=== PATIENT | female | born 1940 | race Caucasian/White ===

== ENCOUNTER 2019-02-14 09:10 | Emergency (ER) | payer MEDICARE, BC, SELFPAY ==
[2019-02-14 10:12] VITALS: BP 108/69; PULSE 82; RESP 22; TEMP 36; O2SAT 97
[2019-02-14 11:07] VITALS: BP 121/65; PULSE 73; RESP 18; O2SAT 92
--- NOTE | 2019-02-14 11:45 | PC.NURSE ---
left flank area, tenderness with palpation. no echymosis or swelling noted.
[2019-02-14 11:53] LABS: Bacteria Urine None Seen; Culture Indicated Urine Specimen Cultured; RBC Urine 0-1/HPF (0-5/HPF); Squamous Epithelial Cell Urine None Seen (0-5/HPF); WBC Urine 0-1/HPF (0-5/HPF)
[2019-02-14 12:00] VITALS: BP 125/69; PULSE 76; RESP 16; O2SAT 94
[2019-02-14 12:30] VITALS: BP 135/73; PULSE 79; RESP 16; O2SAT 99
--- NOTE | 2019-02-14 12:42 | ED.BACK ---
HPI - Back Pain/Injury General Chief Complaint: Back Pain/Injury Stated Complaint: Left side severe back pain Time Seen by Provider: 02/14/19 11:13 Source: patient and family Mode of arrival: ambulatory Limitations: no limitations History of Present Illness HPI Narrative: Patient is a 78-year-old female who presents with left-sided back pain. It has been ongoing for about 1 week. It initially started when she shook the rugs out. She said it was a little bit sore she took some ibuprofen and it got better however she started vacuuming 3 days ago it got worse. It is worse every time she moves. No numbness or tingling in her arms. No painful breathing. She did not fall. She has been using a heating pad. She was given Flexeril which she says isn't helping. MD Complaint: back pain and back injury Onset (ago): day(s) (7) Duration: progressively worsening Location: thoracic spine Severity: moderate Quality: sharp Radiation: none Relieving factors: none Related Data Previous Rx's Medication Instructions Recorded diazepam [Valium] 2 mg PO BID PRN #10 tab 02/14/19 tramadol 50 mg PO Q6HR PRN #10 tab 02/14/19 Allergies Allergy/AdvReac Type Severity Reaction Status Date / Time No Known Drug Allergies Allergy Verified 02/14/19 10:16 Review of Systems Review of Systems GENERAL: Denies chills, fatigue, malaise, fever, sweats, travel HEENT: Denies sinus pain, ear pain, sore throat, difficulty swallowing, neck pain RESPIRATORY: Denies dyspnea, cough, wheezing, hemoptysis, sputum. CARDIOVASCULAR: Denies chest pain, palpitations, orthopnea, edema GASTROINTESTINAL: Denies nausea, vomiting, abdominal pain, diarrhea, constipation, melena. : Denies dysuria, frequency, incontinence, hematuria, urinary retention, flank pain. MUSCULOSKELETAL: See HPI SKIN: No rash, no erythema, no pruritus NEUROLOGIC: Denies weakness, dizziness, headache, numbness, change in speech, confusion PSYCHIATRIC: No concerning psychosocial issues. 12 point review of systems is negative except for those stated above and HPI COUNT INCLUDES THE [facility] Medical History Diabetes (Acute) Social History Smoking Status: Never smoker Social History Smoking Status: Never smoker Exam Initial Vital Signs Initial Vital Signs: Vital Signs Temperature 96.8 F L 02/14/19 10:12 Pulse Rate 82 02/14/19 10:12 Respiratory Rate 22 02/14/19 10:12 Blood Pressure 108/69 02/14/19 10:12 Pulse Oximetry 97 02/14/19 10:12 GENERAL: Alert elderly female ambulatory no acute distress and in no acute distress. HEENT: Head atraumatic,EOMI, pupils reactive CARDIOVASCULAR: Regular rate and rhythm without murmurs, rubs or gallops. RESPIRATORY: Breath sounds equal bilaterally, no wheezes rales or rhonchi. ABDOMEN: Soft, nontender. Normoactive bowel sounds all 4 quadrants. No guarding or rebound. BACK: No vertebral tenderness, left-sided thoracic muscle thumb felt tender to palpation no sign of trauma EXTREMITIES: Normal range of motion, no clubbing or edema. Neurovascularly intact NEUROLOGICAL: Alert and oriented x4.Normal gait and speech. Cranial nerves II through XII grossly intact. SKIN: Warm, dry, no laceration, no petechiae, no rashes or lesions. Course Orders Ordered: ED Orders 02/14/19 11:40 Urine Culture Stat Urine Microscopic Stat Vital Signs - 8 hr 02/14/19 11:07 02/14/19 12:00 02/14/19 12:30 Pulse Rate 73 76 79 Respiratory Rate 18 16 16 Blood Pressure [Left Arm] 121/65 125/69 135/73 Pulse Oximetry 92 94 99 MDM - Back Pain/Injury Lab Data Lab Results 02/14/19 Range/Units 11:40 Urine RBC 0-1/hpf (0-5/HPF) Urine WBC 0-1/hpf (0-5/HPF) Ur Squamous Epith Cells None seen (0-5/HPF) Urine Bacteria None seen (None) Ur Culture Indicated? Specimen cultured Urine Dip Bedside Urine Glucose Negative Bedside Urine Bilirubin - Negative Bedside Urine Ketone - Negative Urine Specific [place] 1.015 Bedside Urine Occult Blood - Negative Bedside Urine pH 6.0 Bedside Urine Protein - Negative Bedside Urine Urobilinogen - Negative Bedside Urine Nitrite - Negative Bedside Urine Leukocytes ++ 125 Esterase MDM Narrative Medical decision making narrative: Patient has been taking ibuprofen only. She has Flexeril, but not helping, also on xanax daily. Discussed with her that we can change muscle relaxer to Valium instead but I cautioned her not to combine it with Xanax. She has also previously been on tramadol for pain which she has tolerated well. I will give her a few tablets of this as well. I cautioned both daughter and patient combination of tramadol and Valium can cause unsteadiness. Use sparingly and only when needed. I am some light movement and activity. She did not fall there was no impact at this time I see no indication for any sort of imaging. Discharge Plan Departure Patient Disposition: Home Clinical Impression: Thoracic back pain Qualifiers: Chronicity: acute Back pain laterality: left Qualified Code(s): M54.6 - Pain in thoracic spine Discharge Date/Time: 02/14/19 13:02 Interventions: ED Discharge Assessment Last Done: 02/14/19 13:01 Instructions: DI for Back Spasm Activity Restrictions/Additional Instructions: *You have been diagnosed with left-sided breast pain *What to do: Light activity is in her ears. No strenuous activity or heavy lifting no vacuuming. *Continue to take medications as directed Valium 2 mg every 12 hours if needed for muscle spasm-do not combine with Xanax or Flexeril --> stop taking Flexeril -tramadol 1 tablet every 6 hours if needed for severe pain -Tylenol 650 mg every 4-6 hours if needed for [id number] *Follow up with your primary care provider in 2-3 days *Return to ER if you should have increasing pain, numbness, tingling or any new, worsening or concerning symptoms CONTROLLED SUBSTANCE DISCHARGE (Narcotoic/benzodiazepine/Flexeril/Phenergan) 1. You have been prescribed narcotic medications, it does have acetaminophen/Tylenol/paracetamol in it so do not take extra Tylenol or Tylenol containing products -TRAMADOL DOES NOT CONTAIN TYLENOL OR IBUPROFEN 2. Please understand that we cannot provide further refills of narcotics, benzodiazepines or controlled substances through the ED and her pain management will need to be through your provider. 3. While on these medications you cannot drive or operate heavy machinery. 4. You cannot sign legal documents or perform any duties such as this. 5. As long as you're taking opiate pain medications he should also be taking a stool softener such as Colace, Dulcolax, MiraLAX or prune juice, to help avoid constipation. Prescriptions: New tramadol 50 mg tablet 50 mg PO Q6HR PRN (Reason: pain) Qty: 10 RF: 0 diazepam [Valium] 2 mg tablet 2 mg PO BID PRN (Reason: muscle spasm) Qty: 10 RF: 0 Referrals: Momo Nielsen MD [Primary Care Provider] -
== END 2019-02-14 13:02 | disposition home or self-care (01) ==
PROVIDERS: Emergency Provider Emergency Medicine; PCP Specialist
DX: M54.6 Pain in thoracic spine (principal)
CPT/HCPCS: 81003; 81015; 87086; 99283

== ENCOUNTER 2020-11-22 09:31 | Emergency (ER) | payer MEDICARE, BC, SELFPAY ==
[2020-11-22 09:38] VITALS: BP 126/72; PULSE 106; RESP 14; TEMP 36.4; O2SAT 95; BMI 34.2
--- NOTE | 2020-11-22 09:58 | ED.BACK ---
HPI - Back Pain/Injury General Chief Complaint: Back Pain/Injury Stated Complaint: BAD BACK, LEFT SIDE MOSTLY Time Seen by Provider: 11/22/20 09:39 Source: patient Limitations: no limitations History of Present Illness HPI Narrative: Patient is a 80-year-old female with history of chronic back pain presenting today with worsening left-sided back pain. She says she takes meloxicam daily and Flexeril as needed. However this pain seems to be more on the lateral side not the center it is different from her previous pain. She denies any painful or frequent urination. She has no fever. Pain does not radiate around to her abdomen. She does have a history of kidney stones but she is not sure that this feels like a kidney stone. She says she really can not get comfortable. She denies any nausea or vomiting. MD Complaint: back pain Onset (ago): day(s) Duration: constant Location: left flank Severity: moderate Related Data Previous Rx's Medication Instructions Recorded diazepam [Valium] 2 mg PO BID PRN #10 tab 02/14/19 tramadol 50 mg PO Q6HR PRN #10 tab 02/14/19 ketorolac 10 mg PO TID PRN #10 tab 11/22/20 nitrofurantoin monohyd/m-cryst 100 mg PO BID #10 cap 11/22/20 [Macrobid] Allergies Allergy/AdvReac Type Severity Reaction Status Date / Time No Known Drug Allergies Allergy Verified 11/22/20 09:44 Review of Systems Review of Systems Narrative: GENERAL: Denies chills, fatigue, malaise, fever, sweats, travel HEENT: Denies sinus pain, ear pain, sore throat, difficulty swallowing, neck pain RESPIRATORY: Denies dyspnea, cough, wheezing, hemoptysis, sputum. CARDIOVASCULAR: Denies chest pain, palpitations, orthopnea, edema GASTROINTESTINAL: Denies nausea, vomiting, abdominal pain, diarrhea, constipation, melena. : Denies dysuria, frequency, incontinence, hematuria, urinary retention, flank pain. MUSCULOSKELETAL: See HPI SKIN: No rash, no erythema, no pruritus NEUROLOGIC: Denies weakness, dizziness, headache, numbness, change in speech, confusion PSYCHIATRIC: No concerning psychosocial issues. 12 point review of systems is negative except for those stated above and HPI Patient History Medical History Chronic back pain Diabetes Kidney stones Social History Smoking Status: Never smoker Smoking Status: Never smoker alcohol intake frequency: other Substance Use Type: does not use Exam Initial Vital Signs Initial Vital Signs: Vital Signs Temperature 97.5 F L 11/22/20 09:38 Pulse Rate 106 H 11/22/20 09:38 Respiratory Rate 14 11/22/20 09:38 Blood Pressure 126/72 11/22/20 09:38 Pulse Oximetry 95 11/22/20 09:38 GENERAL: Well-appearing, well-nourished and in no acute distress. HEENT: Head atraumatic,EOMI, pupils reactive, face symmetric, moist mucous membranes CARDIOVASCULAR: Regular rate and rhythm without murmurs, rubs or gallops. RESPIRATORY: Breath sounds equal bilaterally, no wheezes rales or rhonchi. ABDOMEN: Soft, nontender. Normoactive bowel sounds all 4 quadrants. No guarding or rebound. : Left CVA tenderness EXTREMITIES: Normal range of motion, no clubbing or edema. Neurovascularly intact NEUROLOGICAL: Alert and oriented x4.Normal gait and speech. SKIN: Warm, dry, no laceration, no petechiae, no rashes or lesions. Course Orders Ordered: ED Orders 11/22/20 10:01 CT kidney ureter bladder (KUB) Stat Complete Blood Count AUTO DIFF Stat Comprehensive Metabolic Panel Stat 11/22/20 10:32 Urine Culture Stat Urine Microscopic Stat Discontinued Medications Ketorolac Tromethamine (Ketorolac 60 Mg/2 Ml Vial) 30 mg IV NOW ONE Stop: 11/22/20 09:59 Last Admin: 11/22/20 10:11 Dose: 30 mg Documented by: MARK Vital Signs Vital signs: Vital Signs - 8 hr 11/22/20 10:33 11/22/20 11:00 Pulse Rate 91 H 88 Blood Pressure 97/56 L Pulse Oximetry 93 93 MDM - Back Pain/Injury Lab Data Attestation: I reviewed the patient's lab results. Result diagrams: 11/22/20 10:01 11/22/20 10:01 Labs: Lab Results 11/22/20 11/22/20 11/22/20 Range/Units 10:01 10:01 10:32 WBC 7.9 (4.5-11.0) X10^3/uL RBC 4.76 (4.0-5.2) X10^6/uL Hgb 13.9 (12.0-16.0) g/dL Hct 42.3 (36-46) % MCV 88.9 (80-100) fL MCH 29.3 (26-34) PG MCHC 33.0 (30-36) % RDW 13.2 (11.6-14.8) % Plt Count 342 (150-400) X10^3/uL Neut % (Auto) 56.5 (50-75) % Lymph % (Auto) 34.1 (25-40) % [place] % (Auto) 7.3 (3-14) % Eos % (Auto) 1.2 L (2-4) % Baso % (Auto) 0.9 (0-2) % Neut # (Auto) 4500 (1470-0998) /uL Lymph # (Auto) 2700 (9640-8301) /uL [place] # (Auto) 600 (0-900) /uL Eos # (Auto) 100 (0-450) /uL Baso # (Auto) 100 (0-100) /uL Sodium 134 L (137-145) mmol/L Potassium 4.7 (3.4-5.1) mmol/L Chloride 102 (98-107) mmol/L Carbon Dioxide 23 (22-32) mmol/L BUN 15 (7-17) mg/dL Creatinine 0.82 (0.52-1.04) mg/dL Estimated GFR > 60.0 (>60) mL/min BUN/Creatinine Ratio 18.3 (6-22) Glucose 120 H (80-110) mg/dL Calcium 9.6 (8.4-10.2) mg/dL Total Bilirubin 0.5 (0.2-1.3) mg/dL AST 34 (14-36) IU/L ALT 19 (<35) IU/L Alkaline Phosphatase 89 (38-126) U/L Total Protein 8.6 H (6.3-8.2) g/dL Albumin 4.7 (3.5-5.0) g/dL Globulin 3.9 (1.7-4.1) g/dL Albumin/Globulin Ratio 1.2 (1.0-2.8) Urine RBC None seen (0-5/HPF) Urine WBC 1-5/hpf (0-5/HPF) Ur Squamous Epith Cells 1-5 /hpf (0-5/HPF) Urine Bacteria Occasional (0-1) (None) Ur Culture Indicated? Specimen cultured Urine Dip Bedside Urine Glucose Negative Bedside Urine Bilirubin - Negative Bedside Urine Ketone - Negative Urine Specific [place] 1.020 Bedside Urine Occult Blood - Negative Bedside Urine pH 6 Bedside Urine Protein - Negative Bedside Urine Urobilinogen - Negative Bedside Urine Nitrite - Negative Bedside Urine Leukocytes + [address] scan - abdomen/pelvis: Radiologist's Impression: PROCEDURE: CT KIDNEY URETER BLADDER (KUB) INDICATIONS: LEFT FLANK PAIN TECHNIQUE: Noncontrast 5 mm thick sections acquired from the diaphragms to the symphysis. 5 mm thick coronal and sagittal reformats were then performed. For radiation dose reduction, the following was used: automated exposure control, adjustment of mA and/or kV according to patient size. COMPARISON: None. FINDINGS: Image quality: Excellent. Lung bases: Lung bases are clear. Heart size is normal a small amount of nonspecific pericardial fluid is present that may be physiologic. Urinary system: Both kidneys are normal in size. No kidney stones. No hydronephrosis or perinephric fat stranding. Both ureters appear non-dilated throughout their expected courses. Bladder wall thickness is normal; no calcified bladder stones. Other solid organs: Liver is normal in size. Gallbladder is surgically absent. Pancreas is normal in contours. Spleen is normal in size. No adrenal nodules. Peritoneum and bowel: A diverticulum is seen in the 2nd portion of the duodenum without acute inflammatory changes. There is a small hiatal hernia. Moderate stool is seen in the colon. A few scattered diverticula are seen without signs of acute diverticulitis. The appendix appears normal. There are no signs of bowel obstruction. There is no ascites or pneumoperitoneum. Nodes and vessels: No retroperitoneal or mesenteric adenopathy by size criteria. Aorta and inferior vena cava are normal in caliber. Moderate atherosclerotic calcifications are seen in the aorta. Abdominal wall: There is a tiny fat containing periumbilical hernia. A small fat containing hernia is seen at the right upper quadrant. Pelvis: No free pelvic fluid. No inguinal hernias or adenopathy. Status post hysterectomy. Surgical clips are seen in the pelvis. Bones: No suspicious bony lesions. No vertebral body compression fractures. Multilevel degenerative changes are seen in the spine with trace levoconvex curvature. IMPRESSION: 1. No renal or ureteral calculus or hydronephrosis. 2. Colonic diverticulosis without signs of acute diverticulitis. Moderate stool in the colon. Incidental small duodenal diverticulum and a small hiatal hernia are also noted. Dictated by: Jose Sargent M.D. on 11/22/2020 at 10:17 MDM Narrative Medical decision making narrative: Patient does have leukocytes in her urine and some left flank pain. Overall does not appear septic possible kidney infection versus acute on chronic back pain. Toradol seems to have helped her a lot. More so than meloxicam Discharge Plan Departure Patient Disposition: Home Clinical Impression: Infection of kidney Instructions: DI for Kidney Infection Activity Restrictions/Additional Instructions: *You have been diagnosed with kidney infection *What to do: At this time based on symptoms your worsening back pain may be related to a mild infection. Will start you on antibiotics and change her pain medication. *Continue to take medications as directed Keflex 500 mg 3 times a day for 5 days Ketorolac 10 mg every 8 hours if needed for [id number] pain--> DO NOT TAKE MELOXICAM OR OTHER NSAIDS SUCH IBUPROFEN, MOTRIN, ALEVE, ADVIL, NAPROXEN WHILE TAKING THIS *Follow up with your primary care provider in 2-3 days *Return to ER if you should have increasing pain, confusion, weakness, numbness, tingling or any new, worsening or concerning symptoms Prescriptions: New ketorolac 10 mg tablet 10 mg PO TID PRN (Reason: pain) Qty: 10 RF: 0 nitrofurantoin monohyd/m-cryst [Macrobid] 100 mg capsule 100 mg PO BID Qty: 10 RF: 0 No Action tramadol 50 mg tablet 50 mg PO Q6HR PRN (Reason: pain) Qty: 10 RF: 0 diazepam [Valium] 2 mg tablet 2 mg PO BID PRN (Reason: muscle spasm) Qty: 10 RF: 0 Referrals: Darrion Gómez MD [Primary Care Provider] -
--- NOTE | 2020-11-22 10:01 | DI.CT.S_ITS ---
PROCEDURE: CT KIDNEY URETER BLADDER (KUB) INDICATIONS: LEFT FLANK PAIN TECHNIQUE: Noncontrast 5 mm thick sections acquired from the diaphragms to the symphysis. 5 mm thick coronal and sagittal reformats were then performed. For radiation dose reduction, the following was used: automated exposure control, adjustment of mA and/or kV according to patient size. COMPARISON: None. FINDINGS: Image quality: Excellent. Lung bases: Lung bases are clear. Heart size is normal a small amount of nonspecific pericardial fluid is present that may be physiologic. Urinary system: Both kidneys are normal in size. No kidney stones. No hydronephrosis or perinephric fat stranding. Both ureters appear non-dilated throughout their expected courses. Bladder wall thickness is normal; no calcified bladder stones. Other solid organs: Liver is normal in size. Gallbladder is surgically absent. Pancreas is normal in contours. Spleen is normal in size. No adrenal nodules. Peritoneum and bowel: A diverticulum is seen in the 2nd portion of the duodenum without acute inflammatory changes. There is a small hiatal hernia. Moderate stool is seen in the colon. A few scattered diverticula are seen without signs of acute diverticulitis. The appendix appears normal. There are no signs of bowel obstruction. There is no ascites or pneumoperitoneum. Nodes and vessels: No retroperitoneal or mesenteric adenopathy by size criteria. Aorta and inferior vena cava are normal in caliber. Moderate atherosclerotic calcifications are seen in the aorta. Abdominal wall: There is a tiny fat containing periumbilical hernia. A small fat containing hernia is seen at the right upper quadrant. Pelvis: No free pelvic fluid. No inguinal hernias or adenopathy. Status post hysterectomy. Surgical clips are seen in the pelvis. Bones: No suspicious bony lesions. No vertebral body compression fractures. Multilevel degenerative changes are seen in the spine with trace levoconvex curvature. IMPRESSION: 1. No renal or ureteral calculus or hydronephrosis. 2. Colonic diverticulosis without signs of acute diverticulitis. Moderate stool in the colon. Incidental small duodenal diverticulum and a small hiatal hernia are also noted. Dictated by: Jose Sargent M.D. on 11/22/2020 at 10:17 Approved by: Jose Sargent M.D. on 11/22/2020 at 10:25
[2020-11-22] MEDS: KETOROLAC 60 MG/2 ML VIAL 30 MG IV (10:11)
[2020-11-22 10:33] VITALS: PULSE 91; O2SAT 93
[2020-11-22 10:35] LABS: Add Manual Diff / Slide Review NO; Basophils Absolute Auto 100 /uL (0-100); Basophils Percent Auto 0.9 % (0-2); Eosinophils Absolute Auto 100 /uL (0-450); Eosinophils Percent Auto 1.2 % (2-4); Hematocrit 42.3 % (36-46); Hemoglobin 13.9 g/dL (12.0-16.0); Lymphocytes Absolute Auto 2700 /uL (1100-4500); Lymphocytes Percent Auto 34.1 % (25-40); Mean Corpuscular Hemoglobin 29.3 PG (26-34); Mean Corpuscular Volume 88.9 fL (80-100); Monocytes Absolute Auto 600 /uL (0-900); Monocytes Percent Auto 7.3 % (3-14); Neutrophils Absolute Auto 4500 /uL (1500-7000); Neutrophils Percent Auto 56.5 % (50-75); Platelet Count 342 X10^3/uL (150-400); Red Blood Cell Count 4.76 X10^6/uL (4.0-5.2); Red Cell Distribution Width 13.2 % (11.6-14.8); White Blood Cell Count 7.9 X10^3/uL (4.5-11.0)
[2020-11-22 10:39] LABS: RBC Urine None Seen (0-5/HPF)
[2020-11-22 10:45] LABS: Alanine Aminotransferase 19 IU/L (<35); Albumin 4.7 g/dL (3.5-5.0); Albumin Globulin Ratio 1.2 (1.0-2.8); Alkaline Phosphatase 89 U/L (38-126); Aspartate Aminotransferase 34 IU/L (14-36); BUN Creatinine Ratio 18.3 (6-22); Bilirubin Total 0.5 mg/dL (0.2-1.3); Blood Urea Nitrogen 15 mg/dL (7-17); Calcium 9.6 mg/dL (8.4-10.2); Carbon Dioxide 23 mmol/L (22-32); Chloride 102 mmol/L (98-107); Estimated Glomerular Filt Rate > 60.0 mL/min (>60); Globulin 3.9 g/dL (1.7-4.1); Glucose 120 mg/dL (80-110); HEMOLYSIS < 15 (0-50); Potassium 4.7 mmol/L (3.4-5.1); Sodium 134 mmol/L (137-145); Total Protein 8.6 g/dL (6.3-8.2)
[2020-11-22 10:48] LABS: Bacteria Urine Occasional (0-1); Culture Indicated Urine Specimen Cultured; Squamous Epithelial Cell Urine 1-5 /HPF (0-5/HPF); WBC Urine 1-5/HPF (0-5/HPF)
[2020-11-22 11:00] VITALS: BP 97/56; PULSE 88; O2SAT 93
== END 2020-11-22 11:29 | disposition home or self-care (01) ==
PROVIDERS: Emergency Provider Emergency Medicine; PCP Family Medicine
DX: N15.9 Renal tubulo-interstitial disease, unspecified (principal); Z87.442 Personal history of urinary calculi
CPT/HCPCS: 36415; 74176; 80053; 81003; 81015; 85025; 87086; 96374; 99283; 99284; J1885

== ENCOUNTER → 2020-12-02 19:20 | Outpatient (CLI) | payer MEDICARE, BC, SELFPAY ==
--- NOTE | 2020-12-02 19:24 | DI.MRI.S_ITS ---
PROCEDURE: MR LUMBAR SPINE WO CON INDICATIONS: RADICULOPATHY, LUMBAR REGION TECHNIQUE: Noncontrast sagittal T1 spin echo and T2 fast echo, sagittal STIR, axial T1 and T2 fast spin echo through the lumbar spine. In cases with scoliosis, additional coronal T2 fast spin echo may be performed. COMPARISON: None. FINDINGS: Image quality: Excellent. Alignment and Curvature: Straightening of the usual lumbar lordosis. Otherwise normal alignment. Vertebral body heights maintained. Bone Marrow: Discogenic marrow edema at the opposing L1-L2 and L2-L3 endplates. No suspicious focal marrow signal abnormality. Spinal Cord: Conus medullaris terminates at the normal level. Visualized cord demonstrates normal signal and size. Regional Soft Tissues: No paravertebral masses. T12-L1: No spinal canal or neural foraminal stenosis. L1-L2: Disc bulge flattens the ventral thecal sac without mass effect upon the traversing L2 nerve roots. Mild bilateral neural foraminal stenosis due to spondylitic and spinal arthropathic changes. L2-L3: Mild spinal canal stenosis with displacement of the descending L3 nerve roots due to disc bulge and extrusions. Along with spondyloarthropathy changes there is mild bilateral neural foraminal stenosis. L3-L4: Diffuse disc bulge flattens the ventral thecal sac with mild mass effect upon the descending right greater than left L4 nerve roots within both subarticular zones. There is moderate bilateral neural foraminal stenosis related to foraminal components of the disc bulge and facet hypertrophy. L4-L5: No spinal canal stenosis. Mild bilateral neural foraminal narrowing. L5-S1: Diffuse disc bulge and a superimposed broad-based posterior disc protrusion. Mild mass effect upon the descending S1 nerve roots. Mild right and severe left neural foraminal stenosis. 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 Dictated by: Jakub Higginbotham M.D. on 12/05/2020 at 15:10 Approved by: Jakub Higginbotham M.D. on 12/05/2020 at 15:15
== END ==
PROVIDERS: PCP Family Medicine; Referring Provider Family Medicine; Visit Provider Family Medicine
DX: M47.26 Other spondylosis with radiculopathy, lumbar region (principal); M47.27 Other spondylosis with radiculopathy, lumbosacral region
CPT/HCPCS: 72148